=== PATIENT | male | born 1955 | race Caucasian/White ===

== ENCOUNTER 2019-01-04 10:22 | Emergency (ER) | payer BC ==
[2019-01-04 10:31] VITALS: BP 133/68
--- NOTE | 2019-01-04 11:15 | UC ---
Truncal Trauma HPI - HPI Summary HPI Summary: Patient is a 63yo male presenting with right posterior rib pain x2days after going on a trail run and falling and rolling into a log. He states the pain as not gotten better and it hurts to take deep breaths and cough. He is concerned for a fracture. He denies coughing blood. Denies difficulty breathing at rest. Denies fever, chill, n/v. Denies taking anything for pain relief. - History Of Current Complaint Chief Complaint: UCGeneralIllness Stated Complaint: RIB INJURY Time Seen by Provider: 01/04/19 10:58 Hx Obtained From: Patient Onset/Duration: Sudden Onset, Lasting Days Severity Initially: Moderate Severity Currently: Moderate Pain Intensity: 8 Pain Scale Used: 0-10 Numeric Aggravating Factor(s): Movement, Deep Breathing, Cough Alleviating factor(s): Rest Associated Signs And Symptoms: Negative: SOB, Cough, Abdominal Pain - Allergies/Home Medications Allergies/Adverse Reactions: Allergies Allergy/AdvReac Type Severity Reaction Status Date / Time No Known Allergies Allergy Verified 01/04/19 10:31 Home Medications: Home Medications Atorvastatin* [Lipitor 10 MG*] 10 mg PO DAILY 01/04/19 [History Confirmed ] Ibuprofen TAB* [Motrin TAB* 400 MG] 400 mg PO Q6HR 01/04/19 [History Confirmed 01/04/19] PMH/Surg Hx/FS Hx/Imm Hx Previously Healthy: Yes - Surgical History Surgical History: None - Family History Known Family History: Positive: Non-Contributory - Social History Alcohol Use: Occasionally Substance Use Type: None Smoking Status (MU): Former Smoker When Did the Patient Quit Smoking/Using Tobacco: 40 years ago Review of Systems All Other Systems Reviewed And Are Negative: Yes Constitutional: Positive: Negative Skin: Positive: Bruising - right rib bruising Eyes: Positive: Negative ENT: Positive: Negative Respiratory: Positive: Negative. Negative: Shortness Of Breath, Cough Cardiovascular: Positive: Negative Gastrointestinal: Positive: Negative Motor: Positive: Negative Neurovascular: Positive: Negative Musculoskeletal: Positive: Arthralgia Neurological: Positive: Negative. Negative: Headache Psychological: Positive: Negative Physical Exam Triage Information Reviewed: Yes Appearance: Well-Appearing, No Pain Distress, Well-Nourished Vital Signs: Initial Vital Signs Temp 98.2 F 01/04/19 10:23 Pulse 56 01/04/19 10:23 Resp 16 01/04/19 10:23 BP 133/68 01/04/19 10:23 Pulse Ox 99 01/04/19 10:23 Vital Signs Reviewed: Yes Eyes: Positive: Conjunctiva Clear ENT: Positive: Hearing grossly normal Neck: Positive: Supple Respiratory Exam: Normal Respiratory: Positive: Lungs clear, Normal breath sounds, No respiratory distress, Other: - no crepitus noted. Negative: Crackles Cardiovascular Exam: Normal Cardiovascular: Positive: RRR Musculoskeletal: Positive: Strength Intact, ROM Intact, No Edema Psychological: Positive: Age Appropriate Behavior Skin: Positive: Other - small area of ecchymosis noted on right posterior lower ribs Diagnostics - Radiology chest xray Radiology Interpretation Completed By: Radiologist Summary of Radiographic Findings: FINDINGS: There is a nondisplaced fracture of the posterolateral right 11th rib. The heart is within normal limits in size. The lungs are clear. There is no evidence for pneumothorax or pleural effusion. IMPRESSION: NONDISPLACED FRACTURE OF THE RIGHT 11TH RIB. Truncal Trauma Course/Dx - Course Course Of Treatment: Discussed nondisplaced right 11th rib fracture xray finding with patient. Instructed to use OTC analgesics as directed for pain relief. Explained to be sure to take deep breaths and cough often. Instructed to be splinting, or holding a pillow, on the injured side while doing this to decrease pain. If symptoms persist, patient instructed to follow up with PCP. Patient instructed to go to the emergency department if they experience worsening pain, difficulty breathing, fever, or they cough up blood. Patient voiced understanding and agreed to treatment plan. - Differential Dx/Diagnosis Provider Diagnosis: Closed traumatic nondisplaced fracture of rib Discharge ED - Sign-Out/Discharge Documenting (check all that apply): Patient Departure All imaging exams completed and their final reports reviewed: Yes - Discharge Plan Condition: Stable Disposition: HOME Patient Education Materials: Rib Fracture (ED) Referrals: Mirza Golden MD [Primary Care Provider] - If Needed Additional Instructions: As discussed, your xray showed a nondisplaced fracture of your right 11th rib. You may use ice and over the counter pain medications as directed for pain relief. Refrain from any activity that worsens your pain until pain has fully resolved. Be sure to take deep breaths and cough often. You should be splinting, or holding a pillow, on the injured side while doing this to decrease your pain. If symptoms persist, follow up with your primary care physician. Go to the emergency department if you experience worsening pain, difficulty breathing, fever, or you cough up blood. - Billing Disposition and Condition Condition: STABLE Disposition: Home
== END 2019-01-04 12:13 | disposition home or self-care (01) ==
LOC: UCEAST 10:22
DX: S22.31XA Fracture of one rib, right side, initial encounter for closed fracture (principal); W18.30XA Fall on same level, unspecified, initial encounter; Y93.02 Activity, running; Y92.828 Other wilderness area as the place of occurrence of the external cause; Y99.8 Other external cause status; Z87.891 Personal history of nicotine dependence
CPT/HCPCS: 99211; G0463